=== PATIENT | male | born 1970 | race African-American/Black ===

== ENCOUNTER 2017-06-23 10:57 | Emergency (ER) | payer OTHER ==
[2017-06-23 11:04] VITALS: RESP 16
--- NOTE | 2017-06-23 13:15 | EDPHY ---
H & P Stated Complaint: L back pain HPI/ROS: CHIEF COMPLAINT: Back pain HISTORY OF PRESENT ILLNESS: This patient is a 46 year old male with history of hypertension complaining of back pain onset this morning. He was at work and moving a chair and felt a shooting pain in his back on the left side. Later, when standing the pain returned. He presents at the request of his employer for evaluation. 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 His discomfort was in his left low back radiating to his left buttock. Currently, his pain is resolved. He denies any recent trauma or illness. No fever, numbness or weakness in his extremities, incontinence, or other associated symptoms. REVIEW OF SYSTEMS: A ten point review of systems was performed and is negative with the exception of the items mentioned in the HPI. Past medical history: Hypertension. IBS. Past surgical history: Noncontributory. Family history: Noncontributory. 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 Lives in [place]. Single. General Appearance: Alert. Vital signs reviewed. Neck: Nontender over C spine in the midline. Respiratory: Lungs are clear to auscultation; no wheezes, rales, or rhonchi. Cardiovascular: Regular rate and rhythm; no murmur, rub, or gallop. Gastrointestinal: Abdomen is soft and nontender, no masses or organomegaly, bowel sounds normal. Skin: Warm and dry, no rashes on exposed skin, normal color. Back: Nontender to palpation over the thoracolumbar spine. No paraspinous muscle tenderness or spasm. Extremities: No lower extremity edema, no calf tenderness or swelling. Neurological: Alert and oriented. Moving all four extremities easily and equally. Strength is 5 over 5 bilaterally with testing of all major motor groups in both LEs.Sensation is intact to light touch over lower extremities. Deep tendon reflexes are 1+ in the knees bilaterally. Gait is normal. Psychiatric: Normal affect. - Personal History Current Tetanus/Diphtheria Vaccine: Unsure Current Tetanus Diphtheria and Acellular Pertussis (TDAP): Unsure - Medical/Surgical History Hx Asthma: No Hx Chronic Respiratory Disease: No Hx Diabetes: No Hx Cardiac Disease: No Hx Renal Disease: No Hx Cirrhosis: No Hx Alcoholism: No Hx HIV/AIDS: No Hx Splenectomy or Spleen Trauma: No Other PMH: HTN, IBS, - Social History Smoking Status: Never smoked Constitutional: Initial Vital Signs Temperature (C) 36.5 C 06/23/17 11:02 Heart Rate 61 06/23/17 11:02 Respiratory Rate 16 06/23/17 11:02 Blood Pressure 143/74 H 06/23/17 11:02 O2 Sat (%) 99 06/23/17 11:02 O2 Delivery Mode Room Air Allergies/Adverse Reactions: No Known Allergies Allergy (Unverified 06/23/17 11:02) Home Medications: Medication Instructions Recorded Atenolol 06/23/17 Medical Decision Making ED Course/Re-evaluation: This 46 year old male presents following an episode of left-sided back pain after moving a chair, now completely resolved. Exam is unremarkable. Sensory/ motor intact, gait is normal. His pain is likely musculoskeletal in nature. Plan to discharge home in good condition. He will take ibuprofen as needed for recurring pain. Follow up and return precautions discussed. He is comfortable with this plan. Differential Diagnosis: Considered ddx of back pain including but not limited to muscle strain/spasm, radiculopathy, ureterolithiasis, pyelonephritis, tumor, discitis. Departure - Departure Disposition: Home, Routine, Self-Care Clinical Impression: Low back pain Qualifiers: Chronicity: acute Back pain laterality: left Sciatica presence: without sciatica Qualified Code(s): M54.5 - Low back pain Condition: Good Instructions: Acute Low Back Pain (ED) Additional Instructions: 1. Follow up with your primary care provider for further evaluation. 2. Take ibuprofen 400mg every 6-8 hours with food as needed for pain. 3. Return to the emergency department for severe pain, fever, numbness, difficulty walking, change in location or nature of pain or other concerns. Referrals: Lexx Angeles DO [Doctor of Osteopathy] - As per Instructions Report Scribed for: Dorothea Goldman Report Scribed by: Martha Paris Date of Report: 06/23/17 Time of Report: 13:25 Physician Review and Approval Statement: 06/23/17 13:15 Portions of this note were transcribed by the medical records coordinator. I, Dr. Dorothea Goldman, personally performed the history, physical exam, and medical decision- making; and confirmed the accuracy of the information in the transcribed note.
[2017-06-23 13:30] VITALS: BP 117/82; PULSE 74; TEMP 98.6; O2SAT 98
== END 2017-06-23 13:30 | disposition home or self-care (01) ==
DX: M54.5 Low back pain (principal); I10 Essential (primary) hypertension